=== PATIENT | male | born 1955 | race African-American/Black ===

== ENCOUNTER 2018-03-30 22:01 | Emergency (ER) | payer OTHER ==
[~2018-03-30] VITALS: Ht 177.8 cm; Wt 92.2 kg
[2018-03-30 22:09] VITALS: BP 150/81; PULSE 86; RESP 15; TEMP 98.6; O2SAT 99
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
[2018-03-30 22:47] VITALS: RESP 20; O2SAT 99
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
[2018-03-30 23:06] LABS: AUTOMATED NEUTROPHIL # 2.6 TH/MM3 (1.8-7.7); BASOPHIL % 0.7 % (0.0-2.0); EOSINOPHIL # 0.1 TH/MM3 (0-0.4); EOSINOPHIL % 2.4 % (0.0-4.0); HEMATOCRIT 36.7 % (39.0-51.0); HEMOGLOBIN 12.3 GM/DL (13.0-17.0); LYMPH % 32.4 % (9.0-44.0); LYMPHOCYTE # 1.5 TH/MM3 (1.0-4.8); MEAN CELL VOLUME 79.2 FL (80.0-100.0); MEAN CORPUSCULAR HEMOGLOBIN 26.6 PG (27.0-34.0); MEAN CORPUSCULAR HGB CONC 33.6 % (32.0-36.0); MEAN PLATELET VOLUME 7.6 FL (7.0-11.0); MONO % 9.9 % (0.0-8.0); MONOCYTE # 0.5 TH/MM3 (0-0.9); NEUT % 54.6 % (16.0-70.0); PLATELET COUNT 209 TH/MM3 (150-450); RED BLOOD COUNT 4.64 MIL/MM3 (4.50-5.90); RED CELL DISTRIBUTION WIDTH 14.4 % (11.6-17.2); WHITE BLOOD COUNT 4.8 TH/MM3 (4.0-11.0)
[2018-03-30 23:17] LABS: INTERNATIONAL NORMALIZED RATIO 1.1 RATIO; PROTHROMBIN TIME - PATIENT 10.7 SEC (9.8-11.6)
[2018-03-30 23:31] LABS: BICARBONATE 25.5 MEQ/L (21.0-32.0); BLOOD UREA NITROGEN 15 MG/DL (7-18); CALCIUM 8.9 MG/DL (8.5-10.1); CHLORIDE 105 MEQ/L (98-107); CREATININE 1.19 MG/DL (0.60-1.30); GLOMERULAR FILTRATION RATE 75 ML/MIN (>89); GLUCOSE,RANDOM 115 MG/DL (74-106); SODIUM (NA) 141 MEQ/L (136-145)
[2018-03-30 23:36] LABS: TROPONIN I LESS THAN 0.02 NG/ML (0.02-0.05)
[2018-03-31 00:25] VITALS: BP 148/74; PULSE 60; RESP 15; O2SAT 99
[2018-03-31] MEDS ORDERED: POTASSIUM CHLORIDE 20 MEQ CONTROLLED RELEASE TAB PO ONE (00:30)
[2018-03-31] MEDS ORDERED: ONDANSETRON ODT 4 MG TAB PO ONE (00:30)
[2018-03-31] MEDS ORDERED: MORPHINE SULFATE 2 MG/ML SYRINGE IV PUSH ONE (00:30)
[2018-03-31] MEDS ORDERED: KETOROLAC TROMETHAMINE 30 MG/ML (IVP) VIAL IV PUSH ONE (00:30)
[2018-03-31] MEDS ORDERED: MORPHINE SULFATE 4 MG/ML INJ IV ONE (00:45)
[2018-03-31] MEDS ORDERED: ROBA750T PO (01:16)
[2018-03-31] MEDS ORDERED: IBUP1TAB7 PO (01:16)
[2018-03-31] MEDS ORDERED: TRAM50TA PO (01:16)
--- NOTE | 2018-03-31 14:52 | EKG ---
Date Performed: 03/30/2018 Time Performed: 22:51:15 PTAGE: 62 years EKG: Sinus rhythm MINIMAL VOLTAGE CRITERIA FOR LVH, CONSIDER NORMAL VARIANT NONSPECIFIC T-WAVE ABNORMALITY BORDERLINE ECG NO PREVIOUS TRACING DOCTOR: Kingsley Youssef Interpretating Date/Time 03/31/2018 14:51:21
== END 2018-03-31 02:26 | disposition home or self-care (01) ==
LOC: NEPC 22:01
DX: S20.219A Contusion of unspecified front wall of thorax, initial encounter (principal); S16.1XXA Strain of muscle, fascia and tendon at neck level, initial encounter; E87.6 Hypokalemia; V43.52XA Car driver injured in collision with other type car in traffic accident, initial encounter; Y92.415 Exit ramp or entrance ramp of street or highway as the place of occurrence of the external cause
CPT/HCPCS: 71046; 72040; 80048; 84484; 85025; 85610; 85730; 86850; 86900; 86901; 93005; 96374; 96375; 99285; J1885; J2270